=== PATIENT | female | born 2000 | race Caucasian/White ===

== ENCOUNTER 2021-11-10 19:37 | Inpatient (IN) | payer MEDICAID ==
[~2021-11-10] VITALS: Ht 162.6 cm; Wt 107.0 kg
[2021-11-10] MEDS ORDERED: PNV1TABL50 PO (20:35)
[2021-11-10] MEDS ORDERED: FOLIC ACID (20:35)
[2021-11-10] MEDS ORDERED: FERR325T6 PO (20:35)
[2021-11-10 21:52] LABS: BASOPHILS % 0.4 % (0.0-2.0); EOSINOPHILS % 1.1 % (0.0-5.0); HEMATOCRIT. 40.2 % (36.0-48.0); HEMOGLOBIN. 13.8 g/dL (12.0-16.0); LYMPHOCYTES % 21.6 % (20.0-50.0); MEAN CORPUSCULAR HEMOGLOBIN 30.5 pg (28.0-32.0); MEAN PLATELET VOLUME 10.1 fl (7.4-10.4); MONOCYTES % 6.1 % (2.0-8.0); NEUTROPHILS % 70.8 % (40.0-76.0); PLATELET 190 x1000/uL (130-400); RED BLOOD CELL COUNT 4.51 mill/uL (4.2-5.4); RED CELL DISTRIBUTION WIDTH 14.3 % (11.6-14.6)
[2021-11-10 21:55] LABS: CLARITY URINE CLEAR (CLEAR); COLOR URINE YELLOW (YELLOW); KETONES URINE NEGATIVE (NEGATIVE); LEUKOCYTE ESTERASE URINE NEGATIVE (NEGATIVE); NITRITE URINE NEGATIVE (NEGATIVE); OCCULT BLOOD URINE NEGATIVE (NEGATIVE); PROTEIN URINE 3+ (NEGATIVE); SPECIFIC GRAVITY URINE 1.014 (1.005-1.030); UROBILINOGEN URINE 0.2 E.U./dL (0.2-1.0)
[2021-11-10 22:07] LABS: CHLORIDE 109 mEq/L (98-107); INR 0.9; PARTIAL THROMBOPLASTIN TIME 27.5 sec (23.4-31.0); PROTHROMBIN TIME 9.8 sec (9.6-11.0)
[2021-11-10 22:09] LABS: *AMPHETAMINES SCREEN URINE NEGATIVE (NEGATIVE); *BARBITURATES SCREEN URINE NEGATIVE (NEGATIVE); *BENZODIAZEPINES SCREEN URINE NEGATIVE (NEGATIVE); *COCAINE SCREEN URINE NEGATIVE (NEGATIVE); CANNABINOID URINE SCREEN NEGATIVE (NEGATIVE); METHADONE URINE SCREEN NEGATIVE (NEGATIVE); OPIATES URINE SCREEN NEGATIVE (NEGATIVE); PHENCYCLIDINE URINE SCREEN NEGATIVE (NEGATIVE)
[2021-11-10] MEDS: LACTATED RINGERS 1,000 ML IV SCH (22:12)
[2021-11-10] MEDS ORDERED: MAGNESIUM 4 G PREMIX 100 ML IV NR (22:15)
[2021-11-10 23:08] LABS: HEPATITIS B SURFACE ANTIGEN NEGATIVE
[2021-11-10] MEDS: MAGNESIUM 20 G PREMIX (L & D) 500 ML IV SCH (23:40)
[2021-11-11] MEDS ORDERED: LABETALOL HCL 5MG/ML VIAL 20ML IV PRN ×3 (00:15)
[2021-11-11] MEDS ORDERED: HYDRALAZINE 20MG/ML VIAL IV PRN (00:15)
[2021-11-11] MEDS: MISOPROSTOL 100MCG TABLET VG SCH ×4 (00:15→16:24)
[2021-11-11] MEDS: MAGNESIUM 20 G PREMIX (L & D) 500 ML IV SCH ×3 (06:30→20:45)
[2021-11-11] MEDS: LACTATED RINGERS 1,000 ML IV SCH (13:33)
[2021-11-11] MEDS ORDERED: ONDANSETRON HCL 4MG/2ML INJ IV PRN (13:45)
[2021-11-11] MEDS: ACETAMINOPHEN 325MG TABLET PO PRN ×2 (13:54→18:37)
[2021-11-11] MEDS: DEXT 5%/LR + PITOCIN 20UNITS/L 1,000 ML IV SCH (21:54)
[2021-11-11] MEDS: BUTORPHANOL TARTRATE 2 MG/ML VIAL IV PRN (22:20)
[2021-11-12 01:20] LABS: BASOPHILS % 0.2 % (0.0-2.0); EOSINOPHILS % 0.2 % (0.0-5.0); HEMATOCRIT. 42.3 % (36.0-48.0); HEMOGLOBIN. 14.3 g/dL (12.0-16.0); MEAN CORPUSCULAR HEMOGLOBIN 30.4 pg (28.0-32.0); MEAN CORPUSCULAR VOLUME 90.2 fL (81.0-99.0); MEAN PLATELET VOLUME 9.6 fl (7.4-10.4); MONOCYTES % 7.2 % (2.0-8.0); NEUTROPHILS % 81.4 % (40.0-76.0); PLATELET 183 x1000/uL (130-400); RED BLOOD CELL COUNT 4.69 mill/uL (4.2-5.4); RED CELL DISTRIBUTION WIDTH 14.3 % (11.6-14.6)
[2021-11-12 01:33] LABS: CHLORIDE 105 mEq/L (98-107)
[2021-11-12 01:35] LABS: CLARITY URINE CLEAR (CLEAR); COLOR URINE YELLOW (YELLOW); KETONES URINE NEGATIVE (NEGATIVE); LEUKOCYTE ESTERASE URINE NEGATIVE (NEGATIVE); NITRITE URINE NEGATIVE (NEGATIVE); OCCULT BLOOD URINE 3+ (NEGATIVE); PH URINE 5.5 (4.5-8.0); PROTEIN URINE 2+ (NEGATIVE); SPECIFIC GRAVITY URINE 1.019 (1.005-1.030); UROBILINOGEN URINE 0.2 E.U./dL (0.2-1.0)
[2021-11-12 01:48] LABS: D-DIMER 1.5 mg/L FEU (<0.50); INR 0.9; PARTIAL THROMBOPLASTIN TIME 29.1 sec (23.4-31.0); PROTHROMBIN TIME 9.5 sec (9.6-11.0)
[2021-11-12] MEDS: BUTORPHANOL TARTRATE 2 MG/ML VIAL IV PRN (04:46)
[2021-11-12] MEDS: MAGNESIUM 20 G PREMIX (L & D) 500 ML IV SCH (05:22)
[2021-11-12] MEDS: LACTATED RINGERS 1,000 ML IV SCH ×3 (05:22→20:24)
[2021-11-12] MEDS ORDERED: ROPIVACAINE HCL/PF EPIDURAL 200 ML EPI SCH (08:00)
[2021-11-12] MEDS ORDERED: ROPIVACAINE HCL/PF EPIDURAL 200 ML EPI ONE (08:39)
[2021-11-12] MEDS ORDERED: AMPICILLIN 2,000 MG in SODIUM CHLORIDE 0.9% 100 ML IV NR (19:00)
[2021-11-12] MEDS ORDERED: DEXT 5%/LR + PITOCIN 20UNITS/L 1,000 ML IV SCH (19:45)
[2021-11-12] MEDS: DEXT 5%/LR + PITOCIN 20UNITS/L 1,000 ML IV SCH (19:59)
[2021-11-12] MEDS ORDERED: TERBUTALINE SULFATE 1MG/ML VIAL SUBCUT PRN (21:45)
[2021-11-12] MEDS ORDERED: BETAMETHASONE ACET/BETAMET 30 MG/5 ML VIAL IM SCH (21:45)
[2021-11-12] MEDS ORDERED: AMPICILLIN 1,000 MG in SODIUM CHLORIDE 0.9% 50 ML IV SCH (23:00)
[2021-11-13] MEDS ORDERED: FENTANYL CITRATE/PF 50MCG/ML 2ML VIAL ONE ×2 (01:04→03:16)
[2021-11-13] MEDS ORDERED: MORPHINE SULFATE/PF 1MG/ML 10ML AMP ONE (03:16)
[2021-11-13] MEDS ORDERED: OXYTOCIN 10 UNITS/ML 1ML ONE (03:23)
[2021-11-13] MEDS ORDERED: CEFAZOLIN SODIUM 1000MG/VIAL ONE (03:23)
[2021-11-13] MEDS ORDERED: ONDANSETRON HCL 4MG/2ML INJ ONE (03:35)
[2021-11-13] MEDS ORDERED: METOCLOPRAMIDE HCL 10MG/2ML VIAL ONE (03:35)
[2021-11-13] MEDS ORDERED: GLYCOPYRROLATE 0.2 MG/ML 2ML VIAL ONE (03:38)
[2021-11-13] MEDS ORDERED: PHENYLEPHRINE HCL 10 MG/ML 1ML (IV VIAL) IV ONE (03:46)
[2021-11-13] MEDS ORDERED: TRANEXAMIC ACID 1,000 MG/10 ML IV SCH (04:00)
[2021-11-13] MEDS ORDERED: BUTORPHANOL TARTRATE 2 MG/ML VIAL IV PRN ×2 (05:00)
[2021-11-13] MEDS ORDERED: NALOXONE HCL 0.4 MG/ML 1ML VIAL IV PRN (05:00)
[2021-11-13] MEDS ORDERED: DIPHENHYDRAMINE 50MG/ML VIAL IV PRN (05:00)
[2021-11-13 05:45] VITALS: BP 144/89
[2021-11-13] MEDS ORDERED: IBUPROFEN 400MG TABLET PO PRN (06:30)
[2021-11-13] MEDS ORDERED: DEXT 5%/LR + PITOCIN 20UNITS/L 1,000 ML IV SCH (06:30)
[2021-11-13] MEDS ORDERED: RHO(D) IMMUNE GLOBULIN 300 MCG/SYR IM PRN (06:30)
[2021-11-13] MEDS ORDERED: ONDANSETRON HCL 4MG/2ML INJ IV PRN (06:30)
[2021-11-13] MEDS ORDERED: LANOLIN OINT 7GM TUBE TOP PRN (06:30)
[2021-11-13] MEDS ORDERED: DIPHENHYDRAMINE 25MG CAPSULE PO PRN (06:30)
[2021-11-13] MEDS ORDERED: HEMORRHOIDAL SUPP PR PRN (06:30)
[2021-11-13] MEDS ORDERED: BISACODYL 10MG SUPP PR PRN (06:30)
[2021-11-13 06:42] VITALS: BP 129/83
[2021-11-13 08:00] VITALS: BP 126/83
[2021-11-13] MEDS: SIMETHICONE 80MG TABLET CHEW PO SCH ×3 (09:21→21:16)
[2021-11-13] MEDS: MAGNESIUM/ALUMINUM HYDROXIDE/SIMETHICONE 30ML UDC PO SCH ×3 (09:21→21:15)
[2021-11-13] MEDS: IBUPROFEN 800MG TABLET PO PRN ×2 (09:21→21:15)
[2021-11-13] MEDS: PRENATAL VIT/FE FUMARATE/FA TABLET PO SCH (09:21)
[2021-11-13 16:00] VITALS: BP 145/85
[2021-11-13 19:30] VITALS: BP 143/82
[2021-11-13] MEDS: DOCUSATE SODIUM 100MG CAPSULE PO SCH (21:16)
[2021-11-14] VITALS: BP 140/83
[2021-11-14 04:00] VITALS: BP 134/86
[2021-11-14] MEDS: IBUPROFEN 800MG TABLET PO PRN ×3 (04:24→19:54)
[2021-11-14 06:34] LABS: BASOPHILS % 0.2 % (0.0-2.0); EOSINOPHILS % 0.6 % (0.0-5.0); HEMATOCRIT. 39.2 % (36.0-48.0); HEMOGLOBIN. 13.3 g/dL (12.0-16.0); LYMPHOCYTES % 15.7 % (20.0-50.0); MEAN CORPUSCULAR HEMOGLOBIN 30.7 pg (28.0-32.0); MEAN CORPUSCULAR VOLUME 90.7 fL (81.0-99.0); MONOCYTES % 8.1 % (2.0-8.0); NEUTROPHILS % 75.4 % (40.0-76.0); PLATELET 170 x1000/uL (130-400); RED BLOOD CELL COUNT 4.33 mill/uL (4.2-5.4); RED CELL DISTRIBUTION WIDTH 14.2 % (11.6-14.6)
[2021-11-14 08:00] VITALS: BP 125/83
[2021-11-14] MEDS: SIMETHICONE 80MG TABLET CHEW PO SCH ×4 (08:41→19:55)
[2021-11-14] MEDS: MAGNESIUM/ALUMINUM HYDROXIDE/SIMETHICONE 30ML UDC PO SCH ×4 (08:41→19:54)
[2021-11-14] MEDS: FERROUS SULFATE 325MG TABLET PO SCH ×3 (08:41→17:01)
[2021-11-14 16:00] VITALS: BP 139/88
[2021-11-14] MEDS: ACETAMINOPHEN WITH CODEINE 300/30MG TABLET PO PRN ×2 (17:01→23:44)
[2021-11-14] MEDS: DOCUSATE SODIUM 100MG CAPSULE PO SCH (19:54)
[2021-11-14 20:00] VITALS: BP 135/93
[2021-11-15 01:00] VITALS: BP 130/83
[2021-11-15] MEDS: IBUPROFEN 800MG TABLET PO PRN ×2 (02:11→13:11)
[2021-11-15 03:15] VITALS: BP 127/77
[2021-11-15 07:42] VITALS: BP 129/84
[2021-11-15] MEDS: MAGNESIUM/ALUMINUM HYDROXIDE/SIMETHICONE 30ML UDC PO SCH ×3 (08:00→20:35)
[2021-11-15] MEDS: FERROUS SULFATE 325MG TABLET PO SCH ×3 (08:59→18:17)
[2021-11-15] MEDS: ACETAMINOPHEN WITH CODEINE 300/30MG TABLET PO PRN ×3 (08:59→23:41)
[2021-11-15] MEDS: SIMETHICONE 80MG TABLET CHEW PO SCH ×4 (09:00→20:35)
[2021-11-15] MEDS: PRENATAL VIT/FE FUMARATE/FA TABLET PO SCH (09:00)
[2021-11-15 15:06] VITALS: BP 131/82
[2021-11-15 20:00] VITALS: BP 126/89
[2021-11-15] MEDS: DOCUSATE SODIUM 100MG CAPSULE PO SCH (20:34)
[2021-11-16] VITALS (9 sets, daily range): BP systolic 133–161; BP diastolic 88–102
[2021-11-16] MEDS: ACETAMINOPHEN WITH CODEINE 300/30MG TABLET PO PRN ×4 (04:51→19:00)
[2021-11-16] MEDS: LABETALOL HCL 100MG TABLET PO SCH ×2 (07:09→19:00)
[2021-11-16] MEDS: FERROUS SULFATE 325MG TABLET PO SCH ×3 (07:30→19:00)
[2021-11-16] MEDS: MAGNESIUM/ALUMINUM HYDROXIDE/SIMETHICONE 30ML UDC PO SCH ×3 (07:30→19:01)
[2021-11-16] MEDS: SIMETHICONE 80MG TABLET CHEW PO SCH ×4 (08:00→20:31)
[2021-11-16] MEDS: PRENATAL VIT/FE FUMARATE/FA TABLET PO SCH (14:02)
[2021-11-16] MEDS: DOCUSATE SODIUM 100MG CAPSULE PO SCH (20:31)
[2021-11-17 00:05] VITALS: BP 129/87
[2021-11-17] MEDS: ACETAMINOPHEN WITH CODEINE 300/30MG TABLET PO PRN (00:10)
[2021-11-17 03:30] VITALS: BP 136/85
[2021-11-17] MEDS ORDERED: LABE100T5 PO (03:52)
[2021-11-17] MEDS ORDERED: IBUP-2030 PO (03:52)
[2021-11-17] MEDS ORDERED: MEDROXYPROGESTERONE ACETATE 150MG/ML VIAL IM SCH (04:00)
[2021-11-17 07:30] VITALS: BP 110/58
[2021-11-17] MEDS: LABETALOL HCL 100MG TABLET PO SCH (08:14)
[2021-11-17] MEDS: PRENATAL VIT/FE FUMARATE/FA TABLET PO SCH (08:14)
[2021-11-17] MEDS: SIMETHICONE 80MG TABLET CHEW PO SCH (08:15)
[2021-11-17] MEDS: MAGNESIUM/ALUMINUM HYDROXIDE/SIMETHICONE 30ML UDC PO SCH (08:15)
[2021-11-17] MEDS: FERROUS SULFATE 325MG TABLET PO SCH (08:15)
== END 2021-11-17 10:50 | disposition home or self-care (01) | DRG 540 ==
LOC: 8 EST LDRP 19:37 → OBSVTOIN 19:37 → 8EST 11-13 05:45
PROVIDERS: ADMIT Obstetrics & Gynecology; ATTEND Obstetrics & Gynecology
PROC: 0U7C7ZZ Dilation of Cervix, Via Natural or Artificial Opening (ICD-10-PCS; 2021-11-11)
PROC: 3E0P7GC Introduction of Other Therapeutic Substance into Female Reproductive, Via Natural or Artificial Opening (ICD-10-PCS; 2021-11-11)
PROC: 10D00Z1 Extraction of Products of Conception, Low, Open Approach (ICD-10-PCS; principal; 2021-11-13)
DX: O13.4 Gestational [pregnancy-induced] hypertension without significant proteinuria, complicating childbirth (principal); O63.9 Long labor, unspecified; O36.5930 Maternal care for other known or suspected poor fetal growth, third trimester, not applicable or unspecified; O99.214 Obesity complicating childbirth; Z20.822 Contact with and (suspected) exposure to COVID-19; O69.81X0 Labor and delivery complicated by cord around neck, without compression, not applicable or unspecified; O76 Abnormality in fetal heart rate and rhythm complicating labor and delivery; O62.2 Other uterine inertia; Z3A.36 36 weeks gestation of pregnancy; Z37.0 Single live birth
CPT/HCPCS: 36415; 76805; 76818; 80053; 80305; 81003; 83735; 84550; 85025; 85379; 85384; 86592; 86703; 86762; 86850; 86900; 87340; 87426; 88307; 99281; G0378; J0290; J0595; J0690; J1050; J2274; J2370; J2405; J2590; J2765; J2795; J3010; J3475; J3490; J7050; J7120